=== PATIENT | male | born 1995 | race Caucasian/White ===

== ENCOUNTER 2024-07-15 14:55 | Emergency (ER) | payer MEDICAID, SELFPAY ==
[2024-07-15 14:56] VITALS: BMI 23.1
[2024-07-15 15:05] VITALS: BP 112/75; PULSE 77; RESP 17; TEMP 37; O2SAT 96; BMI 23.1
--- NOTE | 2024-07-15 15:14 | XR_ITS ---
Examination: Testicular sonography complete TECHNIQUE: Multiple high resolution grayscale sonographic images, assessment arterial inflow venous outflow Doppler spectral analysis, flow analysis Exam date and time: July 15, 2024 1549 hours INDICATIONS: Left testicular pain beginning 2 weeks ago history torsion 10 years ago on the left side FINDINGS: Right testis 5.4 x 2.0 x 3.4 cm Epididymis 11 mm Arterial flow to the testicle. No testicular mass Left testis 5.1 x 1.8 x 3.1 cm Epididymis 12 mm Arterial flow testicle. No testicular mass Mild bilateral varicoceles IMPRESSION: No testicular torsion or testicular mass Mild bilateral varicoceles
--- NOTE | 2024-07-15 15:15 | PD.EDRME ---
Rapid Medical Screening Exam RME Arrival date/time: 07/15/24 14:55 28-year-old male with complaints of left testicular pain x 2 weeks. I have greeted and performed a focused initial assessment of this patient. Initial appropriate labs ordered at this time. A comprehensive ED assessment and evaluation of the patient and analysis of all test and completion of medical decision making process will be conducted by additional ED provider. Chief Complaint: Urogenital-Male Time Seen by Provider: 07/15/24 15:04 Vital signs: Vital Signs Temperature 98.6 F 07/15/24 15:05 Pulse Rate 77 07/15/24 15:05 Respiratory Rate 17 07/15/24 15:05 Blood Pressure 112/75 07/15/24 15:05 Pulse Oximetry (%) 96 07/15/24 15:05 Oxygen Delivery Method Room Air 07/15/24 15:05
[2024-07-15 15:42] LABS: Collection Type, Urine Clean Catch
[2024-07-15 15:53] LABS: Bilirubin,Urine Negative (Negative); Blood,Urine Negative (Negative); Clarity,Urine Clear (Clear/Hazy); Color,Urine Lt-Yellow (Lt Yel-Yel); Glucose, Urine Negative (Negative); Ketones,Urine Negative (Negative); Leukocyte Esterase,Urine Negative (Negative); Nitrite,Urine Negative (Negative); Protein,Urine Trace (Neg - Trace); RBC,Urine 2 /hpf (0-3); Specific Gravity,Urine 1.019 (1.001-1.035); Squamous Epithelial Cell,Urine < 1 /hpf (0-5); Urobilinogen,Urine Negative mg/dL (0.0-1.0); WBC,Urine < 1 /hpf (0-5)
--- NOTE | 2024-07-15 16:38 | PD.EDMALE ---
ED Male Genitalurinary RME/HPI General Chief complaint: Urogenital-Male Stated complaint: SENT BY PCP FOR TESTICULAR PAIN Time Seen by Provider: 07/15/24 15:04 Arrival date/time: 07/15/24 14:55 Limitations: no limitations RME / HPI RME / HPI Narrative: 07/15/24 14:55 28-year-old male with complaints of left testicular pain x 2 weeks. I have greeted and performed a focused initial assessment of this patient. Initial appropriate labs ordered at this time. A comprehensive ED assessment and evaluation of the patient and analysis of all test and completion of medical decision making process will be conducted by additional ED provider. Dr. Matthew: Patient has history of testicular torsion 10 years ago and is status post orchiopexy. He has been diagnosed with UTI and is currently being treated with Macrobid. His testicular pain is mild and described as discomfort . I informed the patient that a typo happened and I have sent a prescription for meclizine that was intended for a different patient to his pharmacy. Related Data Home Medications ?Medication ?Instructions ?Recorded ?Confirmed albuterol sulfate 90 mcg/actuation 2 puff inhalation PRN PRN 12/15/20 12/15/20 aerosol inhaler Shortness Of Breath Or Wheezing fluticasone propionate 110 2 puff inhalation BID 12/15/20 12/15/20 mcg/actuation HFA aerosol inhaler Previous Rx's ?Medication ?Instructions ?Recorded acetaminophen 500 mg tablet 500 mg PO QID PRN fever #30 tabs 12/15/20 (Tylenol Extra Strength) meclizine 25 mg tablet 25 mg PO QID PRN dizziness #10 tabs 07/15/24 Allergies Allergy/AdvReac Type Severity Reaction Status Date / Time minocycline Allergy Verified 07/15/24 14:58 Review of Systems Review of Systems Systems Reviewed: All systems reviewed, normal except as documented Past Medical History Past Medical History CARDIAC: Negative Cardiac Disorders or Congestive Heart Failure RESPIRATORY: Positive Asthma; Negative Chronic Obstructive Pulmonary Disease (COPD) GENITOURINARY: Negative Renal Disease ENDOCRINE: Negative Diabetes Mellitus Type 1 or Diabetes Mellitus Type 2 HEMATOLOGIC: Negative Sickle Cell Disease Social History SMOKING STATUS: Never smoker ED Exam General Limitations: Present no limitations General appearance: Present alert and in no apparent distress Head Head exam: Present atraumatic, normocephalic and normal inspection Eye Eye exam: Present normal appearance and EOMI ENT ENT exam: Present normal exam and normal oropharynx Neck Neck exam: Present normal inspection and full ROM Respiratory Respiratory exam: Present normal lung sounds bilaterally and respiratory distress Cardiovascular Cardiovascular exam: Present regular rate and normal rhythm Abdominal Exam Abdominal exam: Present soft and normal bowel sounds exam: Present normal inspection, circumcised and other (The left testicle is significantly smaller and has a rubbery feeling. It is not tender to palpation and is not high rising. Right testicle is completely normal) Back Exam Back exam: Present normal inspection; Absent CVA tenderness (R) Neurological Exam Neurological exam: Present alert, oriented X3 and CN II-XII intact Psychiatric Psychiatric exam: Present normal affect and normal mood Course Quality Measures none Orders Category Date Time Status US testicular Stat Exams 07/15/24 15:14 Completed UA [Urinalysis] Stat Lab 07/15/24 15:26 Completed Reevaluation(s) Reevaluation #1: Patient remains clinically stable throughout the emergency department visit. We reviewed all the results, analysis, and treatment plans. Patient is amenable to discharge. Strict return precautions were outlined. Patient was discharged in stable condition. Time: 17:00 Vital Signs Vital signs: Vital Signs Temperature 98.6 F 07/15/24 15:05 Pulse Rate 77 07/15/24 15:05 Respiratory Rate 17 07/15/24 15:05 Blood Pressure 112/75 07/15/24 15:05 Pulse Oximetry (%) 96 07/15/24 15:05 Oxygen Delivery Method Room Air 07/15/24 15:05 Pulse ox is 96% on room air which is adequate. Urogenital - Male MDM Narrative MDM Narrative:: Rosy Parekh am scribing for and in the presence of Dr. Matthew. Patient data External records reviewed:: [facility] previous records (I reviewed ED visit on 06/20/2022) Clinical information provided by:: patient Social determinants that could affect healthcare access:: none Patient has the following chronic illnesses:: Asthma How is presenting disease/condition affected by chronic disease/condition?: uneffected by Evaluation data The following diagnostics were reviewed and interpreted by me:: lab results and radiology exam(s) Lab and/or radiology exams considered but not ordered:: None Interpretation Summary: Ordering Physician: [place] Date of Service: 07/15/24 Procedure(s): US testicular Accession Number(s): [id number] cc: Holden Patton MD; Margie Salgado MERCHANDISE MANAGER; [place]~ Examination: Testicular sonography complete TECHNIQUE: Multiple high resolution grayscale sonographic images, assessment arterial inflow venous outflow Doppler spectral analysis, flow analysis Exam date and time: July 15, 2024 1549 hours INDICATIONS: Left testicular pain beginning 2 weeks ago history torsion 10 years ago on the left side FINDINGS: Right testis 5.4 x 2.0 x 3.4 cm Epididymis 11 mm Arterial flow to the testicle. No testicular mass Left testis 5.1 x 1.8 x 3.1 cm Epididymis 12 mm Arterial flow testicle. No testicular mass Mild bilateral varicoceles IMPRESSION: No testicular torsion or testicular mass Mild bilateral varicoceles Dictated By: Holden Patton MD Signed By: <Electronically signed by Holden Patton MD in OV> 07/15/24 1622 Medications / Prescriptions Medications or Prescriptions considered but not ordered:: None Medication administrations:: None Consultations Consultation(s) initiated? (list below): No Diagnosis Urogenital Male Differential Diagnosis: urinary tract infection, epididymitis and other (varicoceles ) Most likely diagnosis given after review of the tests above:: Bilateral varicoceles Admission Indicated Admission indicated?: not indicated Admission Request Was there a request for admission?: No Disposition Plan Disposition Plan: Discharge Discharge Attestation Discharge Attestation: The patient and all family members were given an opportunity to ask questions and understood the discharge instructions. Discharge instructions specifically effects, indications for sooner follow up or return to the emergency department, and the expected course of current diagnosis. Patient condition: Stable Discharge Plan Plan Patient Disposition: HOME (Self Care) Patient condition on transfer: Stable Prescriptions/Referrals Prescriptions/Med Rec: New meclizine 25 mg tablet 25 mg PO QID MDD 4 PRN (Reason: dizziness) Qty: 10 0RF No Action albuterol sulfate 90 mcg/actuation Hfa Aerosol Inhaler 2 puff INHALATION PRN PRN (Reason: Shortness Of Breath Or Wheezing) Flovent 110 mcg/actuation Hfa Aerosol Inhaler 2 puff INHALATION BID acetaminophen [Tylenol Extra Strength] 500 mg tablet 500 mg PO QID PRN (Reason: fever ) Qty: 30 0RF Referrals: Margie Salgado NP [Primary Care Provider] - In 1 week Problem List Clinical Impression: Bilateral varicoceles Patient/Caregiver Discharge Instructions Discharge Activity: activity as tolerated Education Materials: ED Varicocele Print Language: Nigerian Stand Alone Forms: [facility] Award Info., Patient Portal Info Letter
== END 2024-07-15 17:29 | disposition home or self-care (01) ==
PROVIDERS: Nurse Practitioner Primary Care; Emergency Provider Emergency Medicine; PCP Nurse Practitioner Family
DX: I86.1 Scrotal varices (principal)
CPT/HCPCS: 76870; 81001; 99284